=== PATIENT | female | born 1975 | race Caucasian/White ===

== ENCOUNTER → 2017-03-13 | Day surgery (SDC) | payer MEDICARE ==
[~2017-03-13] VITALS: Ht 168.9 cm; Wt 111.0 kg
[~2017-03-13] MED LIST: ALBU2.5V4 INHALATION; ALBU8.5H2 INHALATION; ATOR20TA PO; Albuterol 2.5 mg/3 mL Inhalation Solution NEB ONE; CHOL200025 PO; FLUC150T3 PO; FLUN25SP NS; FLUT12AE4 IH; GABA600T2 PO; LAMO150T2 PO; LINA290C PO; LISI40TA PO; Lactated Ringer's 1,000 ML IV ONE; MONT10TA23 PO; NYST1POW23 MC; OXYC5CAP4 PO; PRAZ1CAP2 PO; PRAZ5CAP3 PO; Propofol 10 mg/mL 20 mL Inj ONE; SITA1TAB6 PO; SITA1TBM4 PO; TIZA4CAP8 PO; VENL100T3 PO; ZIPR80CA22 PO; [UNRECOGNIZED DRUG - CODE] PO
--- NOTE | 2017-03-13 07:13 | PCM.HPANE ---
Patient Data Surgeon Admitting Provider: Attending Provider:Randal Salinas MD Primary Care Physician:Omar Linda MD Other Provider:[facility] Anesthesia Reason for Visit Nausea And Vomiting Ht/WT & BMI Body Mass Index Allergies Coded Allergies: Coconut Milk (Verified Allergy, Severe, Anaphylaxis, 04/08/16) rosiglitazone (Verified Allergy, Severe, Edema, 04/08/16) haloperidol (Verified Allergy, Intermediate, Rash,Itching,, 04/08/16) Penicillins (Verified Allergy, Unknown, yeast infections, 04/08/16) TAPE (Verified Allergy, Unknown, Rash, 04/08/16) indapamide (Verified Allergy, Unknown, Hives, 04/08/16) iron (Verified Allergy, Unknown, Nausea, 04/08/16) lactose (Verified Allergy, Unknown, 04/08/16) Past Anesthesia History Anesthesia History: Denies:: Abnormal Airway, Anesthesia Reactions, Difficult Intubation, Fam Anesthesia Reaction, Fam Malignant Hypertherm, Malignant Hyperthermia Diabetes History Hx Diabetes?: Yes (T2DM W/ ) MRSA MRSA: Yes (2005-) Medications Reported Medications Ziprasidone 80 Mg Rocdcpr01 Mg PO BID 03/09/17 Cholecalciferol (Vitamin D3) (Vitamin D3)2,000 Unit Tablet2,000 Unit PO QID 03/09/17 Venlafaxine 100 Mg Otszgj575 Mg PO BIDWM Ref 0 03/09/17 Tizanidine 4 Mg Capsule4 Mg PO 03/09/17 Albuterol HFA (Proair HFA)8.5 Gm Hfa.aer.ad2 Puffs INHALATION Q4H #1 INHALER 03/09/17 Prazosin 5 Mg Capsule5 Mg PO HS 03/09/17 Prazosin 1 Mg Capsule2 Mg PO HS 03/09/17 Pramipexole ER (Mirapex ER)0.375 Mg Tablet0.5 Mg PO DAILY 03/09/17 Nystatin 1 Each Powder.ea.1 Each MC 03/09/17 Montelukast 10 Mg Cgtcnl87 Mg PO HS Ref 0 03/09/17 Lisinopril 40 Mg Fvrpbx27 Mg PO DAILY 30 Days Ref 0 03/09/17 Linaclotide (Linzess)290 Mcg Wbdcjac835 Mcg PO 03/09/17 Lamotrigine 150 Mg Lbjyqi241 Mg PO DAILY Ref 0 03/09/17 Sitagliptin/Metformin 50-1000 mg (Janumet XR 50-1000 mg)1 Each Tbmp.24hr1 Tablet PO DAILY 03/09/17 Sitagliptin/Metformin 50-1000 mg (Janumet 50-1000 mg)1 Each Tablet1 Tablet PO DAILY 03/09/17 Gabapentin 600 Mg Pkgjwc477 Mg PO DAILY Ref 0 03/09/17 Flunisolide 25 Ml Spray25 Ml NS 03/09/17 Atorvastatin (Lipitor)20 Mg Czlzux69 Mg PO DAILY Ref 0 03/09/17 Albuterol Neb Soln 2.5 Mg/3 Ml Vial.neb2.5 Mg INHALATION Q4H PRN For Shortness of Breath Ref 0 03/09/17 Fluticasone/Salmeterol (Advair Hfa 115-21 Mcg Inhaler)12 Gm Hfa.aer.ad1 Puff IH BID #1 INHALER Ref 0 03/09/17 Discontinued Reported Medications oxyCODONE 5 Mg Capsule5 Mg PO Q4H PRN For Pain Ref 0 03/09/17 Fluconazole 150 Mg Ngscvs407 Mg PO ONCE #1 TABLET Ref 0 03/09/17 Lisinopril 10 Mg Ebxshw50 Mg PO DAILY Ref 0 04/10/16 Lubiprostone (Amitiza)24 Mcg Bjuwqwr36 Mcg PO BID 03/22/16 Cholecalciferol (Vitamin D3) (Vitamin D3)2,000 Unit Tablet2,000 Unit PO QID 11/05/15 Pramipexole Dihydrochloride 0.5 Mg Tablet0.5 Mg PO TID 11/05/15 Esomeprazole Magnesium (Nexium)40 Mg Capsule.dr40 Mg PO DAILY Ref 0 11/05/15 Sitagliptin/Metformin 50-1000 mg (Janumet 50-1000 mg)1 Each Tablet1 Tablet PO DAILY 11/05/15 Esomeprazole Magnesium 40 Mg Capsule.dr40 Mg PO DAILY 11/01/15 Ziprasidone 60 Mg Fevcieg450 Mg PO HS 11/01/15 Sodium Chloride (Saline Nasal Mist)126 Ml Ybyr445 Ml NS PRN nasal irritation 10/10/15 Acetaminophen 500 Mg Vrxiwr045 Mg PO Q6H PRN For Pain 10/10/15 Diphenhydramine Hcl (Benadryl)50 Mg Hqdjouy02 Mg PO Q6H PRN allergy 10/10/15 Gabapentin 300 Mg Jsmzmex715 Mg PO 1500 Ref 0 10/10/15 Cholecalciferol (Vitamin D3) (Vitamin D3)3,000 Unit Tablet6,000 Unit PO DAILY 10/10/15 Sitagliptin/Metformin 50-1000 mg (Janumet 50-1000 mg)1 Each Tablet1 Tablet PO BIDAC 10/10/15 Amlodipine 5 Mg Tablet5 Mg PO DAILY Ref 0 10/10/15 Venlafaxine ER 150 Mg Tab.er.23973 Mg PO DAILY Ref 0 10/10/15 Tizanidine 4 Mg Capsule4 Mg PO Q8 SPASMS 02/03/15 Albuterol HFA (Proair HFA)8.5 Gm Hfa.aer.ad2 Puffs INHALATION Q4H PRN For Shortness of Breath 02/03/15 Albuterol Neb Soln 2.5 Mg/3 Ml Vial.neb2.5 Mg INHALATION Q4H PRN For Shortness of Breath Ref 0 02/03/15 Prazosin 1 Mg Capsule3 Mg PO HS 10/28/14 Montelukast 10 Mg Cugqfv78 Mg PO AM 30 Days Ref 0 07/07/14 Gabapentin 600 Mg Ncyndp288 Mg PO HS 30 Days Ref 0 07/07/14 Atorvastatin Calcium 20 Mg Fiktfe37 Mg PO HS #30 TABLET Ref 0 07/07/14 Fluticasone/Salmeterol (Advair Hfa 115-21 Mcg Inhaler)12 Gm Hfa.aer.ad1 Puff IH BID #1 INHALER Ref 0 07/07/14 Lamotrigine ER 300 Mg Tab.er.15777 Mg PO HS #30 TABLET Ref 0 07/07/14 Discontinued Scripts Omeprazole 20 Mg Tablet.dr20 Mg PO BID #60 TABLET Ref 0 Prov:Giacomo De La Torre MD 10/12/15 History History of ENT Problems?: No HEENT History: Denies:: Abnormal Airway Difficult Intubation Dysphagia Denture Type: None Teeth Condition: Within Normal Limits Hx of Heart Problems?: Yes Cardiovascular History: Positive for:: Edema (ankles) Heart Murmur (childhood) Hypertension Denies:: AICD Atrial Fibrillation Cardiac Surgery Chest Pain Congestive Heart Failure Irregular Heartbeat Pacemaker Rheumatic Fever Thrombophlebitis Valvular Heart Disease Hx of Respiratory Problem?: Yes Respiratory History: Positive for:: Asthma (allergy induced asthma) Dyspnea (with asthma) Pneumonia (2013) Denies:: COPD Chest Surgery Cough Emphysema Hemoptysis Tuberculosis Hx Neurologic Problems?: No Neurological History: Positive for:: Headaches (migraines occasionally) Denies:: Alzheimer's Disease CVA Dementia Dizziness Parkinson's Disease Seizures Hx of GI Problems?: No Hx of Problems?: Yes Genitourinary History: Positive for:: Urinary Tract Infection (one) Denies:: HX of Hemodialysis Kidney Stones HX of Peritoneal Dialysis: No Female Hx: Positive for:: Problems with Breasts? (cystic breasts) Denies:: Currently Endometriosis (Poly-cystic ovarian disease) Pelvic Inflammatory Hx Musculoskeletal Problems?: Yes Musculoskeletal History: Positive for:: Back Injury (degenerative disc disease , L4-L5 rods and screws) Denies:: Joint Replacement Musculoskeletal Trauma Hx of Psycho/Social Problems?: Yes Psycho Social History: Positive for:: Anxiety Bipolar Disorder Hx Depression Denies:: Suicide Attempt Hx Surgeries?: Yes (spinal surgeries, knee surgeries, gastric bypass, GALLBLADDER, HERNIA) Hx Any Other Health Problems?: Yes Other History: Positive for:: Hospitalization (multiple surgeries, PNA) Denies:: Cancer Endocrine Disease Thyroid Disease History Blood Transfusions: Denies:: Blood Transfusions Hx Diabetes: Yes (T2DM W/ JANUMET) Hx Alcohol Use: NoHx Substance Use: No Smoking Status: Never Smoker Stop/Bang Risk Assessment Category Category 1A: Patient has history of documented sleep apnea, and HAS NOT received any narcotic, sedative or anesthesia administration during this stay. Category 1B: Patient has history of documented sleep apnea, and HAS received any narcotic , sedative or anesthesia administration during this stay Category 2: Patient has SUSPECTED Obstructive Sleep Apnea, and HAS received any narcotic , sedative or anesthesia administration during this stay. Category 3: Patient has SUSPECTED Obstructive Sleep Apnea and HAS NOT received narcotic, sedative or anesthesia administration during this stay. Category 4: Outpatient in Procedural Areas with known sleep apnea or who screen positive for High Risk via the STOP/BANG questionnaire. Exam Exam General Appearance: Alert, Oriented X3, Cooperative HEENT/AIRWAY: MP 1 Lungs: Normal Air Movement Heart: Regular Rate/Rhythm Plan Impression Patient chart reviewed, patient interviewed and anesthestic plan with risks, benefits, and alternatives discussed, and informed consent obtained. ASA Physical Status: ASA3 Severe Disease Anesthetic Plan: MAC Bene/Risks/Altern/Consents: Yes HP Complete Prior to Induction: Yes Vignesh Pacheco MD Mar 13, 2017 07:13
[2017-03-13 12:02] VITALS: BP 140/85; PULSE 85; RESP 16; O2SAT 100
[2017-03-13 14:25] VITALS: BP 108/71; PULSE 87; RESP 16; O2SAT 100
[2017-03-13 14:35] VITALS: BP 177/81; PULSE 87; O2SAT 100
[2017-03-13 14:40] VITALS: BP 165/71; RESP 16; O2SAT 100
--- NOTE | 2017-03-13 14:48 | ENDO ---
[address] [address] ENDOSCOPY PROCEDURE PATIENT: KEN MORTON : 1975 MR#: [id number] ADMIT: 03/13/2017 JOB ID: [id number] PRIMARY PROVIDER: Omar Linda MD. PROCEDURE: Esophagogastroenteroscopy with biopsy and balloon dilatation. INDICATIONS: A 41-year-old female with recurrent nausea, vomiting in the context of prior gastric bypass surgery. EQUIPMENT: [id number]. SEDATION: Monitored anesthesia as provided by Dr. Vignesh Pacehco. COMPLICATIONS: None identified. PROCEDURE INFORMATION: After the risks and benefits were explained, written and verbal informed consent was obtained, the patient was brought into the endoscopy suite and placed into the left lateral decubitus position. Sedation was achieved using the above-stated medications with the addition of oxygen via nasal cannula. The scope was introduced into the mouth and the bite block, and advanced through to the gastric pouch. I was able to advance through the GJ anastomosis and evaluate both the afferent and efferent limbs. The scope was advanced to approximately 60 cm from the incisors. The scope was slowly withdrawn. Biopsy acquired. Dilatation was performed. The scope was withdrawn from the patient who tolerated the procedure well. FINDINGS: 1. Esophagus: GEJ was at about 36 cm from the incisors. No acute erosive changes. No strictures. No mass lesions. 2. Stomach: The patient had a fairly normal-sized gastric pouch. Random biopsy was taken for exclusion of Helicobacter. No ulcerations, no mass lesions. There was a moderate amount of stenosis and irritated, friable mucosa at the level of the anastomosis. There was retained suture material with some associated exudate and superficial ulceration. It was a little difficult to navigate the scope on through initially, but we did so, and were able to then easily evaluate the afferent and efferent limbs. I did, however, pursue a dilatation with the 12-15 mm CRE balloon after positioning the wire well downstream in the efferent limb. There did not seem to be dilatation going on at the 12 mm nicholas. We upsized to 13.5 for a minute and then up to 15 mm for a minute. There was some friability on the distal side of the anastomosis and I elected to take a biopsy from this location and submitted it separately. 3. Afferent limb: Fairly short and normal in appearance. 4. Efferent limb: This appeared visually normal. ENDOSCOPIC DIAGNOSIS: 1. Mild gastrojejunostomy anastomotic stenosis, status post balloon dilatation to 15 mm. 2. Retained suture material with some mild ulceration and associated mucosal friability. RECOMMENDATIONS: 1. Await histopathology. 2. If Helicobacter is found, it will need to be eradicated with standard triple therapy. However, the patient does have an allergy to PENICILLINS and BACTRIM, among other agents. 3. The patient will return to clinic to see how she has responded to the dilatation process.
--- NOTE | 2017-03-13 17:36 | PCM.ANEP1 ---
Post Anesthesia PACU Phase 1 Assessment Vital Signs Vital Signs Date Time Temp Pulse Resp B/P Pulse Ox O2 Delivery O2 Flow Rate FiO2 03/13/17 14:40 16 165/71 100 Room Air 03/13/17 14:35 87 177/81 100 NEB TX 03/13/17 14:25 87 16 108/71 100 Room Air 03/13/17 12:02 36.5 85 16 140/85 100 Room Air Anesthetic Administered: MAC Level of Alertness: Awake, talking Pain: No Nausea or Vomiting: No CV Function & Hydration Stable: Yes Airway Device: None Lungs: Normal Air Movement PACU Phase 2 Assessment Complications: No Follow up Care: N/A Patient Instructions Provided: N/A Vignesh Pacheco MD Mar 13, 2017 17:36
--- NOTE | 2017-03-21 11:22 | PATH ---
SURGICAL PATHOLOGY Attending Physician:Bessie Pollard CASE STATUS: Signed Out PATIENT NAME: KEN MORTON PID: [id number] : 1975 DATE COLLECTED:03/13/2017 00:00 SPECIMEN: 1: Esophagus, Biopsy 2: Gastric, Biopsy CLINICAL HISTORY: 1). GASTRO ESOPHAGEAL JUNCTION ANASTOMOSIS BIOPSY 2). GASTRIC BIOPSY RULE OUT H PYLORI FINAL DIAGNOSIS: 1. Designated "Gastroesophageal Junction Anastomosis", Biopsy: - Enteric mucosa with focal erosion, chronic inflammation with reactive changes, consistent with anastomosis site. See comment. - Negative for dysplasia and malignancy. 2. Gastric Biopsy, Rule out H. Pylori: - Gastric antral-type mucosa with chronic gastritis. - Negative for Helicobacter pylori microorganisms by immunohistochemistry. - Negative for intestinal metaplasia. - Negative for dysplasia or malignancy. COMMENT: The patient' s history of prior gastric bypass surgery is noted. Histologic sections in part A designated a gastroesophageal anastomosis; demonstrate glandular mucosa with villi, goblet cells and Paneth cells consistent with small bowel mucosa. No squamous mucosa is identified.The differential diagnosis also includes gastric type mucosa with intestinal metaplasia. Endoscopic correlation is recommended. ICD10: K95.0 GROSS DESCRIPTION: The specimen is received in two formalin filled containers labeled with the patient's name. 1). The specimen is labeled "GE junction anastomosis" and consists of a 0.2 x 0.2 x 0.2 CM portion of tissue which is entirely submitted in cassettes 1A. 2). The specimen is labeled "gastric" and consists of a 0.2 x 0.2 x 0.2 CM portion of tissue which is entirely submitted in cassette 2A. 03/14/2017DC MICRO DESCRIPTION: An immunohistochemical stain was performed in order to evaluate for Helicobacter pylori microorganism. The control stain shows appropriate reactivity. * This test was developed and its performance characteristics determined by [employer]. It has not been cleared or approved by the U.S. Food and Drug Administration. The FDA has determined that such clearance or approval is not necessary. This test is used for clinical purposes. It should not be regarded as investigational or for research. ICD-9 CODES: CPT CODES: 1: 29727 2: 67930, 60338 Electronically Signed Out Jan Arango MD [facility] [address] [place] [address] Division, [place] [address] Technical component performed at [facility], [address], [place], [address]
== END | disposition home or self-care (01) ==
LOC: END 01:37
PROVIDERS: ATTEND Internal Medicine Gastroenterology
DX: K29.50 Unspecified chronic gastritis without bleeding (principal); K63.89 Other specified diseases of intestine; Z98.84 Bariatric surgery status; G47.33 Obstructive sleep apnea (adult) (pediatric); J45.909 Unspecified asthma, uncomplicated; I10 Essential (primary) hypertension; F32.9 Major depressive disorder, single episode, unspecified; E11.9 Type 2 diabetes mellitus without complications; D50.9 Iron deficiency anemia, unspecified